=== PATIENT | male | born 1995 | race Caucasian/White ===

== ENCOUNTER 2020-10-05 23:30 | Emergency (ER) | payer OTHER ==
[~2020-10-05] VITALS: Ht 195.6 cm; Wt 136.1 kg
[2020-10-05 23:36] VITALS: BP 140/80
--- NOTE | 2020-10-05 23:36 | NUR ---
to bed ambulatory
--- NOTE | 2020-10-05 23:57 | NUR ---
ERMD EVALUATING PATIENT AT BEDSIDE.
--- NOTE | 2020-10-06 00:01 | NUR ---
Pt c/o scant blood in urine and BM since he was 16, increased in frequency in past few months. States he saw PCP regarding symptoms but no tx necessary. Denies N/V/D. Denies frequency/burning/pain on urination. Denies other medical hx, states there is family hx of CA. Denies taking any meds.
--- NOTE | 2020-10-06 00:17 | NUR ---
Urine sample collected and given to manufacturing laborer
[2020-10-06 00:21] LABS: APPEARANCE,URINE CLEAR (CLEAR); BILIRUBIN,URINE 2+ (NEGATIVE); BLOOD, URINE NEGATIVE (NEGATIVE); COLOR,URINE YELLOW (YELLOW); LEUKOCYTE ESTERASE ,URINE NEGATIVE (NEGATIVE); NITRITE, URINE NEGATIVE (NEGATIVE); UGLUCOSE NEGATIVE (NEGATIVE)
[2020-10-06 00:23] LABS: BASOPHILS # (AUTO) 0.1 K/uL (0.00-0.22); BASOPHILS % (AUTO) 0.6 % (0.0-2.0); EOSINOPHILS # (AUTO) 0.1 K/uL (0-0.4); EOSINOPHILS % (AUTO) 1.2 % (0.0-4.0); HEMATOCRIT 45.6 % (36-52); HEMOGLOBIN 15.7 g/dL (12.0-18.0); LYMPHOCYTES # (AUTO) 2.8 K/uL (2.0-11.5); LYMPHOCYTES % (AUTO) 29.3 % (20.5-51.1); MEAN CORPUSCULAR HEMOGLOBIN 31 pg (27-31); MEAN CORPUSCULAR HGB CONC 34 g/dL (33-37); MEAN CORPUSCULAR VOLUME 89.7 fL (80-94); MONOCYTES # (AUTO) 0.9 K/uL (0.8-1.0); MONOCYTES % (AUTO) 9.1 % (1.7-9.3); NEUTROPHILS # (AUTO) 5.7 K/uL (1.8-7.7); NEUTROPHILS % (AUTO) 59.8 % (42.2-75.2); PLATELET COUNT (AUTO) 214 K/uL (140-450); RED BLOOD CELL COUNT(AUTO) 5.09 MIL/uL (4.20-6.10); RED CELL DISTRIBUTION WIDTH 13.3 % (11.6-13.7); WHITE BLOOD COUNT (AUTO) 9.5 K/uL (4.8-10.8)
[2020-10-06 00:46] LABS: PROTHROMBIN TIME 9.9 secs (10.8-13.4)
[2020-10-06 00:50] LABS: ALBUMIN 4.6 g/dL (3.4-5.0); CARBON DIOXIDE 25.6 mmol/L (21-32); POTASSIUM 3.6 mmol/L (3.5-5.1); TOTAL BILIRUBIN 0.8 mg/dL (0.0-1.0)
[2020-10-06 01:10] VITALS: BP 140/80
--- NOTE | 2020-10-06 01:10 | NUR ---
Patient discharged with v/s stable. Written and verbal after care instructions given and explained. Patient verbalized understanding. Ambulatory with steady gait. All questions addressed prior to discharge. Advised to follow up with PMD.
== END 2020-10-06 01:10 | disposition home or self-care (01) ==
LOC: MED 23:30
DX: R31.9 Hematuria, unspecified (principal)
CPT/HCPCS: 36415; 80053; 81003; 82550; 85025; 85610; 99283